=== PATIENT | female | born 1995 | race Caucasian/White ===

== ENCOUNTER 2016-12-13 07:24 | Day surgery (SDC) | payer MEDICAID ==
[~2016-12-13 07:24] MED LIST: ADDERALL XR20 MG PO; ALBUTEROL-200 PUFFS/ IH; AMOXICILLIN &500 MG PO; AMPHETAMINE SAL20 MG PO; AVPAK AZITHROM250 MG PO; CETIRIZINE HYDR10 MG OR; FLEXERIL10 MG PO; IBUPROFEN400 MG PO; ICY HOT1 CRE TP; IRON TABLETS325 MG PO; KEFLEX 500MG.500 MG PO; KEFLEX250 M1 PO; MINOCYCLINE 10100 MG PO; MOBIC7.5 MG PO; MOTRIN 400MG.400 MG PO; MOTRIN400 MG PO; MULTI VITAMINS1 TA1 PO; NAPROSYN500 M1 PO; NICOTINE T21 MG/24 H TD; NOMEDS *; NOMEDS XX; PERCOCET 5/3251 EACH PO; PHENERGAN 25MG.25 M1 PO; PHENERGAN25 M3 PO; PRENATAL PLUS1 TA1 PO; PROMETHAZINE D473 ML PO; ROBAXIN-750750 MG PO; ROBITUSSIN120 ML/BOT PO; SEPTRA DS 800 M1 TAB PO; TAMIFLU 75MG CA75 MG PO; TYLENOL WITH CO1 TA1 PO; VENTOLIN H0.09 MG/Ac IH; ZYRTEC ALLERGY10 MG PO
--- NOTE | 2016-12-13 12:27 | Anesthesia Record ---
Anesthesia Record Part I Total IV fluids: 700 EBL (ml): 0 Urine Output: 0 B/P: 117/71 % SaO2: 95 Pulse: 75 Resps: 16 Temp: 97 Patient is: Drowsy, Stable Stable to PACU at: 1225 at 1227
--- NOTE | 2016-12-13 12:28 | Anesthesia Record ---
Anesthesia Record Part II Discharge time: 1255 Destination: Same day surgery PACU nurse assessment review? Yes Patient is: Stable Anesthesia complications? No at 1220
[2016-12-13 17:24] VITALS: BP 105/71
--- NOTE | 2016-12-17 15:48 | Operative Note ---
Other ENT Procedure Date of Procedure: 12/13/16 Time of Procedure: 0845 Procedure performed: 1. Microdebridement right and left mastoids 2. removal fo right aural polyp Pre-op diagnosis: 1. Chronic bilateral mastoiditis 2. Right aural polyp 3. Possible bilateral serous otitis media Post-op diagnosis: same Surgeon: Leonardo Linn Anesthesia: general Pre-procedure antibiotics: Ancef 1 gm Pre-procedure steroid: Decadron 12 mg Description of procedure: Patient under general anesthesia the right ear was prepped and draped. There was extensive polyps involving the RIGHT middle ear, or was a moderate amount of debris in the RIGHT epitympanic mastoid pocket. The debris was cleared and then it was evident that the patient had an extensive tympanic membrane perforation with complete atelectasis of the RIGHT middle ear. The scarred tissue remaining attached to the medial wall of the mesial tympanum. There was no space to place a ear tube. All of the aural polyps were removed and submitted the ear was thoroughly irrigated after the microdebrider bent and Ciprodex drops were applied. The left ear was prepped and draped. The findings were similar except for the fact that there was no significant aural polyp present in the left ear. The LEFT mastoid epi tympanic pocket was completely micro-debrided. There was no miso tympanic space. And it was not possible to insert a ear tube. Ciprodex drops were applied and the patient was sent to recovery in good general condition. EBL (ml): 2 at [id number]
== END 2016-12-13 13:30 | disposition home or self-care (01) ==
LOC: SDC 07:24
PROVIDERS: Otolaryngology
PROC: 09JH7ZZ Inspection of Right Ear, Via Natural or Artificial Opening (ICD-10-PCS; 2016-12-13)
PROC: 09JJ7ZZ Inspection of Left Ear, Via Natural or Artificial Opening (ICD-10-PCS; principal; 2016-12-13 08:45)
DX: H70.13 Chronic mastoiditis, bilateral (principal); H74.41 Polyp of right middle ear; H65.23 Chronic serous otitis media, bilateral; H72.91 Unspecified perforation of tympanic membrane, right ear
CPT/HCPCS: J2405

== ENCOUNTER → 2016-12-14 | Outpatient (CLI) | payer MEDICAID ==
[2016-12-14 20:15] LABS: AMPHETAMINES/METAMPHETAMINES POSITIVE ng/mL (<1000)
[2016-12-22 10:39] LABS: Alprazolam Negative (Cutoff=100); Benzodiazepines Positive ng/mL (Cutoff=100); Clonazepam Negative (Cutoff=100); Flurazepam Negative (Cutoff=100); Lorazepam Negative (Cutoff=100); Midazolam Positive (.); Temazepam Negative (Cutoff=100); Triazolam Negative (Cutoff=100)
== END ==
LOC: LAB 19:35
PROVIDERS: Emergency Medicine
DX: Z79.899 Other long term (current) drug therapy (principal)
CPT/HCPCS: G0480

== ENCOUNTER 2017-03-06 16:56 | Emergency (ER) | payer MEDICAID ==
[~2017-03-06] VITALS: Ht 162.6 cm; Wt 73.5 kg
[2017-03-06 17:36] LABS: STREP SCREEN (RAPID) NEGATIVE
--- NOTE | 2017-03-06 18:16 | Emergency Room Report ---
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 N Clinical Suspician of Infection? N Mental Status: 1 - Regular (Normal Baseline) Sepsis Risk:Low Sepsis Risk Have you (or family members/close friends) recently traveled outside the [place]? N If Yes, where/when: Have you had exposure to infectious disease within the past month? TB? Other? Specify: Source patient, RN notes reviewed, family, RN/MD Exam Limitations no limitations Comment This is a 22-year-old female presenting to the emergency room with subjective fever, body aches, chills, sore throat and congestion since morning. She also had a couple of episodes of nausea and vomiting, denies any diarrhea. ALLERGIES Coded Allergies: cinnamon (Mild, VOMITING 12/13/16) Home Medications Reported Medications DEXTROAMPHETAMINE/AMPHETAMINE (Adderall XR 20 MG Capsule) 40 MG PO History Medical History General CAD? No Angina: No [place]: No Hypertension? No Hyperlipidemia? No CHF? No DVT? No PE? No COPD? No Asthma? Yes Anemia? Yes GERD? No Gastric ulcers? No GI Bleed? No Hernia? No Thyroid Problems? No Hypothyroidism? No CVA? No Seizures? No Diabetes? No End Stage Renal Disease? No UTI? No Stones? No BPH? No GB Disease: No Nephritic Syndrome? No Asplenia? No Hepatitis? No Sickle Cell Disease? No Arthritis? No Migraines? No Cataracts? No Glaucoma? No MRSA? No HIV? No TB? No Anxiety? No Depression? No Cancer? No Site: N More? 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 Musculoskeletal muscle pain (myalgias) Physical Exam Vital Signs Vital Signs Date Time Temp Pulse Resp B/P Pulse O2 O2 Flow FiO2 Ox Delivery Rate 03/06 1922 100.0 110 16 134/87 98 03/06 1838 100.2 110 16 134/87 98 03/06 170 98.8 120 16 114/92 97 General Appearance normal appearance, WD/WN, mild distress Ear, Nose, Throat hearing grossly normal, nasal congestion, pharyngeal erythema Respiratory Status Yes: trachea midline, chest symmetrical, non tender chest. No: respiratory distress. Lung Sounds bilateral: normal breath sounds, lungs clear. 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 No Comment 19:00-upon reevaluation patient appears medically stable, in no acute distress, afebrile, nonseptic looking. Patient is able to hold down oral fluids by now. Advised patient to alternate Motrin and Tylenol for fever control, take the Zofran prescribed today as directed. Results/Orders Laboratory Tests 03/06/17 1820: Urine Color YELLOW, Urine Appearance CLEAR, Urine pH 8.5, Ur Specific [place] 1.015, Urine Protein TRACE H, Urine Ketones TRACE H, Urine Blood 1+ H, Urine Nitrate NEGATIVE, Urine Bilirubin NEGATIVE, Urine Urobilinogen 0.2, Ur Leukocyte Esterase NEGATIVE, Urine RBC NONE, Urine WBC OCC, Ur Squamous Epith Cells 20-50, Urine Bacteria 1+, Urine Mucus 2+, Urine Yeast 2+, Urine Glucose NEGATIVE 03/06/17 1700: Influenza Type A Ag NOT DETECTED, Influenza Type B Ag NOT DETECTED Current Medication Orders Sig/Michael Start time Last Medication Dose Route Stop Time Status Admin Ceftriaxone Sodium 1 GM ONCE ONE 03/06 1845 DC IM 03/06 1846 Lidocaine HCl 0 ONCE ONE 03/06 1845 DC IM 03/06 1846 Acetaminophen 0 .STK-MED ONE 03/06 1833 DC PO Acetaminophen 1,000 MG ONCE ONE 03/06 1830 DC 03/06 PO 03/06 1831 1837 Ondansetron HCl 4 MG ONCE ONE 03/06 1830 CAN PO 03/06 1831 Ondansetron HCl 4 MG ONCE ONE 03/06 1745 DC 03/06 PO 03/06 1746 1735 Ondansetron HCl 0 .STK-MED ONE 03/06 1733 DC .ROUTE Orders Procedure Date/time Status URINALYSIS/COMPLETE 03/06 181 Complete URINE 03/06 181 Complete STREP SCREEN THROAT 03/06 170 Complete INFLUENZA A&B ANTIGENS 03/06 1703 Complete CULTURE, THROAT 03/06 1700 Active Departure Departure Time of Disposition 1912 Disposition DC Home or Self Care(routine) Clinical Impression Primary Impression: Viral syndrome Condition STABLE Referrals [place] PRATT,Barrie Sahni (Family): 2 Days-Call Office if not better Patient Instructions DI for Viral Syndrome Additional Instructions Please drink plenty of fluids, take the medications prescribed as directed, alternate Motrin with Tylenol for fever/body aches. Discharge Counseling Counseled pt/family regarding diagnosis, test results, medications/RX, home care, follow up needs Comment Please drink plenty of fluids, take the medications prescribed as directed, alternate Motrin with Tylenol for fever/body aches. Prescriptions Current Visit Scripts Ondansetron (Zofran 4MG Odt) 4 MG PO Q6HP PRN NAUSEA AND VOMITING #28 ODT ED Critical Care Critical Care No at 0710
--- NOTE | 2017-03-06 18:16 | Emergency Room Report ---
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 N Clinical Suspician of Infection? N Mental Status: 1 - Regular (Normal Baseline) Sepsis Risk:Low Sepsis Risk Have you (or family members/close friends) recently traveled outside the [place]? N If Yes, where/when: Have you had exposure to infectious disease within the past month? TB? Other? Specify: Source patient, RN notes reviewed, family, RN/MD Exam Limitations no limitations Comment This is a 22-year-old female presenting to the emergency room with subjective fever, body aches, chills, sore throat and congestion since morning. She also had a couple of episodes of nausea and vomiting, denies any diarrhea. ALLERGIES Coded Allergies: cinnamon (Mild, VOMITING 12/13/16) Home Medications Reported Medications DEXTROAMPHETAMINE/AMPHETAMINE (Adderall XR 20 MG Capsule) 40 MG PO History Medical History General CAD? No Angina: No [place]: No Hypertension? No Hyperlipidemia? No CHF? No DVT? No PE? No COPD? No Asthma? Yes Anemia? Yes GERD? No Gastric ulcers? No GI Bleed? No Hernia? No Thyroid Problems? No Hypothyroidism? No CVA? No Seizures? No Diabetes? No End Stage Renal Disease? No UTI? No Stones? No BPH? No GB Disease: No Nephritic Syndrome? No Asplenia? No Hepatitis? No Sickle Cell Disease? No Arthritis? No Migraines? No Cataracts? No Glaucoma? No MRSA? No HIV? No TB? No Anxiety? No Depression? No Cancer? No Site: N More? 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 Musculoskeletal muscle pain (myalgias) Physical Exam Vital Signs Vital Signs Date Time Temp Pulse Resp B/P Pulse O2 O2 Flow FiO2 Ox Delivery Rate 03/06 1922 100.0 110 16 134/87 98 03/06 1838 100.2 110 16 134/87 98 03/06 170 98.8 120 16 114/92 97 General Appearance normal appearance, WD/WN, mild distress Ear, Nose, Throat hearing grossly normal, nasal congestion, pharyngeal erythema Respiratory Status Yes: trachea midline, chest symmetrical, non tender chest. No: respiratory distress. Lung Sounds bilateral: normal breath sounds, lungs clear. 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 No Comment 19:00-upon reevaluation patient appears medically stable, in no acute distress, afebrile, nonseptic looking. Patient is able to hold down oral fluids by now. Advised patient to alternate Motrin and Tylenol for fever control, take the Zofran prescribed today as directed. Results/Orders Laboratory Tests 03/06/17 1820: Urine Color YELLOW, Urine Appearance CLEAR, Urine pH 8.5, Ur Specific [place] 1.015, Urine Protein TRACE H, Urine Ketones TRACE H, Urine Blood 1+ H, Urine Nitrate NEGATIVE, Urine Bilirubin NEGATIVE, Urine Urobilinogen 0.2, Ur Leukocyte Esterase NEGATIVE, Urine RBC NONE, Urine WBC OCC, Ur Squamous Epith Cells 20-50, Urine Bacteria 1+, Urine Mucus 2+, Urine Yeast 2+, Urine Glucose NEGATIVE 03/06/17 1700: Influenza Type A Ag NOT DETECTED, Influenza Type B Ag NOT DETECTED Current Medication Orders Sig/Michael Start time Last Medication Dose Route Stop Time Status Admin Ceftriaxone Sodium 1 GM ONCE ONE 03/06 1845 DC IM 03/06 1846 Lidocaine HCl 0 ONCE ONE 03/06 1845 DC IM 03/06 1846 Acetaminophen 0 .STK-MED ONE 03/06 1833 DC PO Acetaminophen 1,000 MG ONCE ONE 03/06 1830 DC 03/06 PO 03/06 1831 1837 Ondansetron HCl 4 MG ONCE ONE 03/06 1830 CAN PO 03/06 1831 Ondansetron HCl 4 MG ONCE ONE 03/06 1745 DC 03/06 PO 03/06 1746 1735 Ondansetron HCl 0 .STK-MED ONE 03/06 1733 DC .ROUTE Orders Procedure Date/time Status URINALYSIS/COMPLETE 03/06 181 Complete URINE 03/06 181 Complete STREP SCREEN THROAT 03/06 170 Complete INFLUENZA A&B ANTIGENS 03/06 1703 Complete CULTURE, THROAT 03/06 1700 Active Departure Departure Time of Disposition 1912 Disposition DC Home or Self Care(routine) Clinical Impression Primary Impression: Viral syndrome Condition STABLE Referrals [place] PRATT,Barrie Sahni (Family): 2 Days-Call Office if not better Patient Instructions DI for Viral Syndrome Additional Instructions Please drink plenty of fluids, take the medications prescribed as directed, alternate Motrin with Tylenol for fever/body aches. Discharge Counseling Counseled pt/family regarding diagnosis, test results, medications/RX, home care, follow up needs Comment Please drink plenty of fluids, take the medications prescribed as directed, alternate Motrin with Tylenol for fever/body aches. Prescriptions Current Visit Scripts Ondansetron (Zofran 4MG Odt) 4 MG PO Q6HP PRN NAUSEA AND VOMITING #28 ODT ED Critical Care Critical Care No at 1853
[2017-03-06 18:24] LABS: URINE BILIRUBIN - DIPSTICK NEGATIVE (NEG); URINE BLOOD 1+ (NEG)
[2017-03-06 18:54] LABS: URINE SQUAMOUS CELLS 20-50 #/hpf (0-5)
[2017-03-06] MEDS ORDERED: ZOFRAN ODT4 MG PO (19:15)
[2017-03-06 19:22] VITALS: BP 134/87
== END 2017-03-06 19:22 | disposition home or self-care (01) ==
LOC: ER 16:56
PROVIDERS: Emergency Medicine
DX: B34.9 Viral infection, unspecified (principal); J45.909 Unspecified asthma, uncomplicated; F17.210 Nicotine dependence, cigarettes, uncomplicated